=== PATIENT | male | born 1975 | race Caucasian/White ===

== ENCOUNTER 2024-03-29 14:56 | Day surgery (SDC) | payer OTHER, SELFPAY ==
[2024-03-27 10:47] VITALS: BMI 33.7
[2024-03-29 15:50] VITALS: BP 121/91; PULSE 61; RESP 16; TEMP 36.7; O2SAT 96
[2024-03-29 15:53] VITALS: BMI 33.7
[2024-03-29] MEDS: LACTATED RINGERS 1,000 ML 42 ML IV (16:18)
--- NOTE | 2024-03-29 16:27 | SUR.OPER ---
Prone on padded OR bed, head in foam head support, gel chest rolls, gel pad under knees, toes free of pressure, arms secured on padded arm boards at <90 degrees abduction. Safety belt at thigh. operative leg draped free
--- NOTE | 2024-03-29 17:13 | SUR.PREOP ---
Block start time [1658] . Monitoring initiated and maintained throughout procedure. Oxygen and medications given per anesthesiologist instructions. Patient remained stable throughout procedure, no adverse reactions noted. Block end time [1703].
--- NOTE | 2024-03-29 17:36 | PM.PREOP ---
Pre-operative Note Interval Note History & Physical reviewed/Exam performed by Physician: Yes Changes to H&P: No
[2024-03-29] MEDS: CEFAZOLIN VIAL 3 GM in SODIUM CHLORIDE 0.9% 100 ML IV (18:18)
[2024-03-29] MEDS: BUPIVACAINE 0.25% W/ EPI 30 ML VIAL 60 ML INJ (18:42)
[2024-03-29] MEDS: BUPIVACAINE 0.25% (PF) 30 ML, EPINEPHrine 0.15 MG INJ (19:11)
--- NOTE | 2024-03-29 19:22 | P.OP_ITS ---
Operative Date/Time/Diagnoses Date of procedure: 03/29/24 Time of procedure: 18:20 Pre-op diagnosis: Rupture right Achilles tendon Post-op diagnosis: same Procedure & Clinicians Procedure: Achilles tendon repair right CPT code 56527 Same procedure as scheduled: Yes Indications: Patient is a 48-year-old male that sustained an Achilles rupture of his right Achilles approximately 6 weeks ago while he was pushing heavy items and felt an acute pop in the back of his leg. Sought urgent care and his PCP was told he has a sprain eventually underwent an MRI that was read as high-grade partial- thickness with a few strands however a 2.5 cm gap. The patient had persistent swelling and weakness and pain and was ultimately had a delayed diagnosis of a Achilles tendon rupture. No active plantar flexion with Gomez test. Surgical and nonsurgical options were discussed. We discussed he had an established gap and in order to obtain length and power an Achilles tendon repair would be needed. We discussed a chronic option would be a flexor hallucis longus transfer. At 6 weeks in a young patient primary repair was felt to be appropriate to avoid long-term dysfunction weakness and atrophy. The risks and benefits of the procedure have been discussed with the patient and given the opportunity to ask questions. The risks of surgery include but are not limited to infection, rerupture, persistence of pain, damage to nerves and blood vessels, need for additional procedures DVT, PE, cardiopulmonary complications and . The patient expressed a thorough understanding of the risks and benefits of surgery and has elected to proceed. Consent was signed . Surgeon: Ana Cheek Click Yes if Unassisted: Yes Anesthesia Type: General, Peripheral nerve block and Local Operative Notes Findings: No active plantar flexion with Gomez test. Achilles tendon rupture with significant stretching and mop ends. Moderate adhesions and scar tissue from subacute rupture Closure Type: primary Specimen(s): none sent Prosthetic devices, grafts, tissues, transplants, or devices: Suture tape Estimated Blood Loss (mL): 5 Blood products transfused: none Tourniquet time (min): 22 Procedure in detail: Patient was seen in the preoperative area the site of surgery was marked and informed consent confirmed. The right lower extremity was marked. The patient underwent a preoperative nerve block with the anesthesia team for postoperative pain control. The patient was then brought to the operating room and general anesthetic was administered. The patient was then positioned prone position on the table bony prominences were well padded. A thigh tourniquet was applied to the operative extremity and SCD to the nonoperative leg. The right lower extremity was prepped and draped in standard sterile fashion a formal time-out procedure was performed confirming the patient's side and site of surgery administration of appropriate preoperative antibiotic. All were in agreement. Attention was turned to the right leg was brought up into knee flexion and again calf squeeze did not demonstrate active plantar flexion this was the Gomez test consistent with Achilles tendon rupture. Based on the MRI and palpation examination this was a high Achilles rupture and incisions marked out starting between 8 and 12 cm above the insertion of the Achilles on the calcaneus. This was taken just medial to the midline. The Esmarch was used for exsanguination the tourniquet was raised to 250 mm of mercury. Incision was taken just medial to midline to stay away from the sural nerve. This was taken carefully down through the skin subcutaneous fascia. Neurovascular bundle was retracted laterally. Paratenon was opened. The tendon and functional rupture with a scarred stretched out tendon and adhesive scar was demonstrated. Incision was slightly extended proximally and distally to expose good tendon. Suture tape was placed in a Krackow fashion proximally and distally then the mid section of the scarred ball part of the rupture was then cut out creating proximally cm and a half to 2 cm of shortening next the tendon ends were brought together with the foot in about 20? of plantar flexion and tied. This was oversewn with the additional 0 Vicryl suture. Once this was complete the Gomez test was again performed and this time there was intact plantar flexion with calf squeeze demonstrating reconstitution of the Achilles tendon after the repair. Additionally a fasciotomy was made of the deep fascia to help with blood supply to the repair. The tourniquet was released hemostasis was achieved. The wound was irrigated the paratenon was closed with 2-0 Vicryl subcutaneous with 2-0 Vicryl 4-0 Monocryl and the skin with 3-0 nylon suture. 20 cc of 0.25% Marcaine with epinephrine were injected for local anesthesia. The limb was dressed with Xeroform gauze Webril and a well-padded posterior splint in 20? of plantar flexion. Patient was awoken from anesthesia and taken to recovery room in good condition there were no immediate complications from this procedure. All counts were correct. Complications: none Post-operative Condition: stable Disposition: PACU Plan for aftercare: Patient will undergo the standard Achilles repair protocol we will spend the 1st 2-3 weeks in the plantar flexion splint then at the 1st postoperative appointment as long as the incisions well healed we will go into a boot with heel lifts and start progressive weight-bearing in the boot with the heel lifts and we will start early plantar flexion range of motion. No dorsiflexion above 0. Once full weight-bearing in the boot at about 6 weeks postop the heel lifts we will start along the weaning protocol. The patient will utilize aspirin for DVT prophylaxis.
[2024-03-29 19:23] VITALS: BP 149/89; PULSE 67; RESP 18; TEMP 36.8; O2SAT 97
[2024-03-29 19:28] VITALS: BP 141/86; PULSE 57; RESP 14; O2SAT 97
[2024-03-29 19:34] VITALS: BP 129/92; PULSE 57; RESP 14; O2SAT 97
[2024-03-29 19:39] VITALS: BP 141/89; PULSE 53; RESP 16; TEMP 36.8; O2SAT 97
== END 2024-03-29 19:54 | disposition home or self-care (01) ==
PROVIDERS: Referring Provider Orthopaedic Surgery Foot and Ankle Surgery; Visit Provider Orthopaedic Surgery Foot and Ankle Surgery
PROC: (CPT 27650; principal; 2024-03-29 16:15)
DX: S86.011A Strain of right Achilles tendon, initial encounter (principal); G89.18 Other acute postprocedural pain
CPT/HCPCS: 27650; 64450; J0171; J0330; J0690; J1100; J1170; J2405; J2704

== ENCOUNTER 2025-05-19 22:39 | Emergency (ER) | payer OTHER, SELFPAY ==
[2025-05-19 22:42] VITALS: BP 148/86; PULSE 98; RESP 16; TEMP 36.8; O2SAT 95; BMI 32.5
--- NOTE | 2025-05-19 22:46 | ED.GENADULT ---
HPI - General Adult General Chief complaint: Shortness of Breath/Dyspnea Stated complaint: cold since wednesday , fatigue, trouble breathingweak Time Seen by Provider: 05/19/25 22:45 History of Present Illness HPI narrative: Patient is a 49-year-old male with a past medical history of hypertension comes into the ED from home for evaluation of flu-like symptoms ongoing persistent since yesterday, he states that he has been feeling some sinus congestion swollen lymph nodes he states that tonight he was lying down states that he felt like he was unable to breathe, states that even currently he feels like he is only able to take shallow breaths. He does admit to a cough fevers chills muscle aches he denies any other symptoms at this time. Not on any blood thinners, he states that he actually recently travel from [place] and states that his son has come down with a cold. States that he feels like he was too congested he uses CPAP today. On time of evaluation patient is speaking full sentences protecting airway no voice changes no stridor no trismus not requiring any supplemental oxygen. Related Data Home Medications ?Medication ?Instructions ?Recorded ?Confirmed lisinopril 5 mg tablet 5 mg PO DAILY 03/27/24 05/19/25 Previous Rx's ?Medication ?Instructions ?Recorded ondansetron HCl 4 mg tablet 4 mg PO Q8H PRN nausea and 03/29/24 vomiting #5 tabs oxycodone 5 mg tablet 5 mg PO Q4H PRN pain #30 tabs 03/29/24 Allergies Allergy/AdvReac Type Severity Reaction Status Date / Time No Known Drug Allergies Allergy Verified 05/19/25 22:43 Review of Systems Review of Systems Narrative: General: Positive fever, chills, denies weight loss HEENT: Denies headache, eye drainage, eye irritation, head trauma, sore throat, voice change Cardiovascular: Denies any chest pain, palpitations, tachycardia Respiratory: Positive shortness of breath, cough, denies wheeze, stridor GI/: Denies any abdominal pain, nausea, vomiting, diarrhea, bright red blood per rectum, melanotic stools, urinary frequency, urinary retention, dysuria, hematuria MSK: Denies any joint pain, muscle pains, swelling Skin: Denies any rashes, lesions, discoloration Neuro: Denies any headache, lightheadedness, dizziness, fainting, weakness Psych: Denies SI/HI Patient History Medical History (Updated 05/20/25 @ 00:23 by Vladislav Charlton DO) HTN (hypertension) Social History household members: spouse and children Smoking Status: Never smoker alcohol intake: current alcohol intake frequency: a few times a month Exam Narrative Exam Narrative: General: Cooperative, well-developed, not in acute distress HEENT: Normocephalic, atraumatic, PERRLA, normal sclera, eyelids normal, positive nasal congestion Neck: Active full range of motion, atraumatic Chest: Normal to inspection, negative crepitus, no overlying erythema ecchymosis Respiratory: Normal respiratory effort, not in acute respiratory distress, clear to auscultation bilaterally negative cough, wheeze, tachypnea, rhonchi, rales Cardiology: Regular rate rhythm negative gallop, murmur, rubs GI/: No tenderness to palpation, soft, non rigid, normal to inspection, exam deferred MSK: Full active range of motion in all 4 extremities, atraumatic, no tenderness to palpation of any bony prominences Skin: No rashes or lesions noted Neuro: Alert awake oriented x3, moves all 4 extremities spontaneously, cranial nerves intact, able to answer all questions appropriately follows commands appropriately Psych: Cooperative, negative suicidal or homicidal ideations Initial Vital Signs Initial Vital Signs: Vital Signs Temperature 98.2 F 05/19/25 22:42 Pulse Rate 98 H 05/19/25 22:42 Respiratory Rate 16 05/19/25 22:42 Blood Pressure 148/86 H 05/19/25 22:42 Pulse Oximetry 95 05/19/25 22:42 Oxygen Delivery Method Room Air 05/19/25 22:42 Course Orders Ordered: ED Orders 05/19/25 23:05 XR chest 1V Stat EKG-12 Lead Stat 05/19/25 23:17 Complete Blood Count AUTO DIFF Stat Comprehensive Metabolic Panel Stat Lipase Stat MAG [Magnesium] Stat NT-proBNP (BNP-Adult 18+) Stat Troponin & CK Cardiac Panel Stat 05/19/25 23:19 Respiratory Panel (Film Array) Stat Discontinued Medications Albuterol (Albuterol Hfa Mdi 60 Puff/8 Gm Inhaler (Covid Only)) 2 puff INH NOW ONE Stop: 05/19/25 23:06 Last Admin: 05/19/25 23:22 Dose: Not Given Documented By: Albuterol (Albuterol Hfa Prepack) 1 box MISC DIRECTED ONE Stop: 05/19/25 23:12 Last Admin: 05/19/25 23:23 Dose: 1 box Documented By: Vital Signs Vital signs: Vital Signs - 8 hr 05/19/25 22:42 05/19/25 23:04 05/19/25 23:05 Temperature 98.2 F Pulse Rate 98 H 94 H 94 H Respiratory Rate 16 Blood Pressure 148/86 H Pulse Oximetry 95 99 96 Oxygen Delivery Method Room Air 05/19/25 23:05 05/19/25 23:30 05/19/25 23:31 Temperature Pulse Rate 87 86 Respiratory Rate 24 Blood Pressure 140/91 H Pulse Oximetry 94 94 Oxygen Delivery Method 05/19/25 23:31 Temperature Pulse Rate Respiratory Rate 22 Blood Pressure 136/93 H Pulse Oximetry Oxygen Delivery Method Medical Decision Making Lab Data 05/19/25 23:17 05/19/25 23:17 Labs: Lab Results 05/19/25 05/19/25 Range/Units 23:17 23:19 WBC 8.0 (4.5-11.0) X10^3/uL RBC 4.74 (4.5-5.9) X10^6/uL Hgb 15.2 (13.5-17.5) g/dL Hct 43.2 (41-53) % MCV 91.0 (80-100) fL MCH 32.0 (26-34) PG MCHC 35.2 (30-36) % RDW 13.2 (11.6-14.8) % Plt Count 233 (150-400) X10^3/uL Neut % (Auto) 83.0 H (50-75) % Lymph % (Auto) 8.3 L (25-40) % [place] % (Auto) 6.3 (3-14) % Eos % (Auto) 0.2 L (2-4) % Baso % (Auto) 2.2 H (0-2) % Neut # (Auto) 6600 (9391-3503) /uL Lymph # (Auto) 700 L (4296-0555) /uL [place] # (Auto) 500 (0-900) /uL Eos # (Auto) 0 (0-450) /uL Baso # (Auto) 200 H (0-100) /uL Sodium 135 L (137-145) mmol/L Potassium 3.8 (3.4-5.1) mmol/L Chloride 100 (98-107) mmol/L Carbon Dioxide 25 (22-32) mmol/L BUN 11 (9-20) mg/dL Creatinine 0.87 (0.66-1.25) mg/dL Estimated GFR > 60 (>60) mL/min BUN/Creatinine Ratio 12.6 (6-22) Glucose 115 H (70-99) mg/dL Calcium 8.6 (8.4-10.2) mg/dL Magnesium 1.8 (1.6-2.3) mg/dL Total Bilirubin 1.0 (0.2-1.3) mg/dL AST 26 (17-59) IU/L ALT 28 (<50) IU/L Alkaline Phosphatase 89 (38-126) U/L Total Creatine Kinase 53 L (55-170) U/L Troponin I < 0.012 (0.01-0.034) ng/mL NT-Pro-B Natriuret Pep 57 (<125) pg/mL Total Protein 7.6 (6.3-8.2) g/dL Albumin 4.4 (3.5-5.0) g/dL Globulin 3.2 (1.7-4.1) g/dL Albumin/Globulin Ratio 1.4 (1.0-2.8) Lipase 42 (23-300) U/L Chlamy pneumoniae PCR Not detected (Not Detect) Adenovirus (PCR) Not detected (Not Detect) B. pertussis DNA (PCR) Not detected (Not Detect) B.parapertussis DNA PCR Not detected (Not Detecte) Coronavirus OC43 (PCR) Not detected (Not Detect) Coronavirus HKU1 (PCR) Not detected (Not Detect) Coronavirus 229E (PCR) Not detected (Not Detect) SARS-CoV-2 (PCR) Detected H (Not Detecte) Coronavirus NL63 (PCR) Not detected (Not Detect) Human Metapneumovir PCR Not detected (Not Detect) Influenza Type A (PCR) Not detected (Not Detect) Influenza Type B (PCR) Not detected (Not Detect) M. pneumoniae (PCR) Not detected (Not Detect) Parainfluenza 1 (PCR) Not detected (Not Detect) Parainfluenza 2 (PCR) Not detected (Not Detect) Parainfluenza 3 (PCR) Not detected (Not Detect) Parainfluenza 4 (PCR) Not detected (Not Detect) RSV (PCR) Not detected (Not Detect) Entero/Rhino (PCR) Not detected (Not Detect) MDM Narrative Medical decision making narrative: 49-year-old male presenting with flu-like symptoms ongoing persistent for the past 2 days. Complaining of fevers chills shortness of breath cough, patient not requiring any supplemental oxygen. Patient lab work without any leukocytosis, troponin negative, BNP negative, chest x-ray without any acute cardiopulmonary abnormality, patient respiratory panel positive for COVID, he is not requiring any supplemental oxygen he has improved symptoms after symptomatic treatment with albuterol inhaler. He will be discharged home with albuterol for spastic coughing instructed him to take Motrin Tylenol for aches and pains, he was given strict return precautions verbalized understanding of this and agrees to being discharged home with outpatient follow up with the primary care. Discharge Plan Departure Patient Disposition: Home Clinical Impression: COVID Instructions: DI for COVID-19 (Suspected or Confirmed ) Activity Restrictions/Additional Instructions: Please follow up with the primary care doctor as needed Please read the discharge instructions sheet carefully and bring all papers to all doctor follow-up visits, as it may contain information that your doctor may want to see. Disease processes change and evolve, if your symptoms worsen or if you develop any new symptoms that are concerning to you please return for evaluation. Your evaluation today does not show any evidence of any life-threatening/serious illnesses requiring admission to the hospital or surgery. Please follow-up with your doctor for re-evaluation in approximately 1 day. Seek immediate medical attention for any worrisome symptoms. *If you do not have a primary care provider please contact the [facility] Resource line at [phone]. They will ask some questions about your medical history and help get you set up with a doctor in the community. Prescriptions: No Action lisinopril 5 mg Tablet 5 mg PO DAILY oxycodone 5 mg tablet 5 mg PO Q4H PRN (Reason: pain) Qty: 30 0RF Rx Instructions: postop exempt ondansetron HCl 4 mg tablet 4 mg PO Q8H PRN (Reason: nausea and vomiting) Qty: 5 1RF Referrals: [facility] [Primary Care Provider, Family Practice] Stand Alone Forms: Patient Portal/API
[2025-05-19 23:04] VITALS: PULSE 94; O2SAT 99
[2025-05-19 23:05] VITALS: BP 140/91; PULSE 94; RESP 24; O2SAT 96
--- NOTE | 2025-05-19 23:05 | DI.RAD.S_ITS ---
PROCEDURE: XR CHEST 1V INDICATIONS: dyspnea TECHNIQUE: One view of the chest was acquired. COMPARISON: None. FINDINGS: Surgical changes and devices: None. Lungs and pleura: Bilateral mid to lower lung linear opacities without dense consolidation. No effusion or. Mediastinum: Mediastinal contours appear normal. Heart size is normal. Bones and chest wall: No suspicious bony lesions. Overlying soft tissues appear unremarkable. IMPRESSION: Bilateral mid to lower lung opacities suggestive of atelectasis/hypoinflation. No acute consolidations to suggest pneumonia. Dictated by: Rosario Wong M.D. on 05/20/2025 at 0:04 Approved by: Rosario Wong M.D. on 05/20/2025 at 0:05
[2025-05-19 23:23] LABS: Add Manual Diff / Slide Review NO; Hematocrit 43.2 % (41-53); Hemoglobin 15.2 g/dL (13.5-17.5); Lymphocytes Absolute Auto 700 /uL (1100-4500); Mean Corpuscular HGB Conc 35.2 % (30-36); Mean Corpuscular Hemoglobin 32.0 PG (26-34); Mean Corpuscular Volume 91.0 fL (80-100); Platelet Count 233 X10^3/uL (150-400)
[2025-05-19] MEDS: ALBUTEROL HFA PREPACK 1 BOX MISC (23:23)
[2025-05-19 23:30] VITALS: PULSE 87; O2SAT 94
[2025-05-19 23:31] VITALS: BP 136/93; PULSE 86; RESP 22; O2SAT 94
[2025-05-19 23:45] LABS: Alanine Aminotransferase 28 IU/L (<50); Albumin 4.4 g/dL (3.5-5.0); Albumin Globulin Ratio 1.4 (1.0-2.8); Alkaline Phosphatase 89 U/L (38-126); Blood Urea Nitrogen 11 mg/dL (9-20); Calcium 8.6 mg/dL (8.4-10.2); Carbon Dioxide 25 mmol/L (22-32); Chloride 100 mmol/L (98-107); Creatine Kinase 53 U/L (55-170); Estimated Glomerular Filt Rate > 60 mL/min (>60); Globulin 3.2 g/dL (1.7-4.1); Glucose 115 mg/dL (70-99); HEMOLYSIS < 15 (0-50); Lipase 42 U/L (23-300); Potassium 3.8 mmol/L (3.4-5.1); Sodium 135 mmol/L (137-145); Total Protein 7.6 g/dL (6.3-8.2)
[2025-05-19 23:46] LABS: Magnesium 1.8 mg/dL (1.6-2.3)
--- NOTE | 2025-05-19 23:46 | EKG_ITS ---
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
[2025-05-19 23:55] LABS: NT-proBNP (BNP-Adult 18+) 57 pg/mL (<125)
[2025-05-19 23:57] LABS: Troponin I < 0.012 ng/mL (0.01-0.034)
[2025-05-20] VITALS: BP 141/94; PULSE 86; RESP 18; O2SAT 94
[2025-05-20 00:16] LABS: Coronavirus NL 63 Not Detected (Not Detect); SARS- CoV-2 Detected (Not Detecte)
== END 2025-05-20 00:32 | disposition home or self-care (01) ==
PROVIDERS: Emergency Provider Student in an Organized Health Care Education/Training Program
DX: U07.1 COVID-19 (principal); I10 Essential (primary) hypertension
CPT/HCPCS: 36415; 71045; 80053; 82550; 83690; 83735; 83880; 84484; 85025; 87633; 93005; 99283; 99284; A9270

== ENCOUNTER 2025-05-29 11:00 | Emergency (ER) | payer OTHER, SELFPAY ==
[2025-05-29 11:09] VITALS: BP 148/89; PULSE 81; RESP 15; TEMP 36.4; O2SAT 96; BMI 33.0
--- NOTE | 2025-05-29 11:15 | EKG_ITS ---
[address] [address] Test Date: 2025-05-29 Pat Name: Tai Ortega Department: Room: Gender: Male [employer] Officer: NATHANIEL : 1975 Requested By: Order Number: [id number] Reading MD: Mendez Herndon MD Measurements Intervals [place] Rate: 75 P: 42 DC: 178 QRS: 26 QRSD: 90 T: 33 QT: 358 QTc: 399 Interpretive Statements Normal sinus rhythm Electronically Signed On 05-29-2025 12:19:16 PDT by Mendez Herndon MD
--- NOTE | 2025-05-29 11:15 | DI.RAD.S_ITS ---
PROCEDURE: XR CHEST 2V INDICATIONS: green sputum with cough TECHNIQUE: 2 views of the chest were acquired. COMPARISON: None. FINDINGS: Surgical changes and devices: None. Lungs and pleura: Lungs are clear. No pleural effusions or pneumothorax. Mediastinum: Mediastinal contours are normal. Heart size is normal. Bones and chest wall: No suspicious bony abnormalities. Soft tissues appear unremarkable. IMPRESSION: No acute cardiopulmonary abnormality is seen. Dictated by: Deidre Torres MD, PhD on 05/29/2025 at 11:31 Approved by: Deidre Torres MD, PhD on 05/29/2025 at 11:31
--- NOTE | 2025-05-29 11:29 | ED_ITS ---
HPI - URI/Sore Throat <Ana Shook PA-C - Last Filed: 05/29/25 12:08> General Chief Complaint: Upper Respiratory Symptoms Stated Complaint: Still not feeling good from last ER visit Time Seen by Provider: 05/29/25 11:13 Mode of arrival: Ambulatory History of Present Illness HPI Narrative: Mr. Ortega is a pleasant 49-year-old male with a past medical history of hypertension, sleep apnea who presents to the emergency department for worsening productive cough x 10 days. Patient develop shortness of breath, cough and the upper respiratory symptoms about 2 weeks ago and was seen in the ER on 05/19/2025 and had lab work, imaging, EKG performed and ended up testing positive for COVID. He has been using an albuterol inhaler as needed however he is continued to feel fatigued and have persistent nasal drainage/sinus pressure over the last 10 days with worsening productive cough. Patient went back to work 2 days ago but becomes extremely fatigued and has coughing fits with exertion. At night when the patient lays flat he can feel the sinus pressure moving around. Symptoms are improved with taking [id number] cough medicine and Tylenol which he took prior to arrival. Patient states that coughing fits become extremely aggressive at night causing his back to crack and for him to have bilateral chest wall pain. No substernal chest pain at rest. No fevers but patient does have occasional sweating. Denies abdominal pain, lower extremity swelling, nausea, vomiting, diarrhea, dysuria, ear pain, sore throat, antibiotic allergies. Nonsmoker. Related Data Home Medications ?Medication ?Instructions ?Recorded ?Confirmed lisinopril 5 mg tablet 5 mg PO DAILY 03/27/2405/19 Previous Rx's ?Medication ?Instructions ?Recorded ondansetron HCl 4 mg tablet 4 mg PO Q8H PRN nausea and 03/29/24 vomiting #5 tabs oxycodone 5 mg tablet 5 mg PO Q4H PRN pain #30 tab s 03/29/24 amoxicillin 875 mg-potassium 1 tab PO BID 7 days #14 t abs 05/29/25 clavulanate 125 mg tablet benzonatate 100 mg capsule 200 mg (2 x 100 mg) PO BID- TID PRN 05/29/25 cough #30 caps Allergies Allergy/AdvReac Type Severity Reaction Status Date / Time No Known Drug Allergies Allergy Verified 05/29/25 11:09 Review of Systems <nAa Shook PA-C - Last Filed: 05/29/25 12:08> Review of Systems ROS Unobtainable: All systems reviewed & are unremarkable except as noted in HPI and below Patient History <Ana Shook PA-C - Last Filed: 05/29/25 12:08> Medical History HTN (hypertension) Social History household members: spouse and children Smoking Status: Unknown if ever smoked alcohol intake: current Smoking Status: Unknown if ever smoked alcohol intake frequency: a few times a month Alcohol type: beer, wine and hard liquor Exam <Ana Shook PA-C - Last Filed: 05/29/25 12:08> Narrative Exam Narrative: GENERAL: 49 year old patient appears stated age. Well-developed patient, in no acute distress. HEAD: Atraumatic. Normocephalic. EYES: Extraocular motions intact. No scleral icterus. No injection or drainage. ENT: mild erythema R TM, no drainage in canal. mild scarring left TM, canal clear. BL nares patent, BL maxillary sinus tenderness. Throat without erythema, tonsillar hypertrophy or exudate. Airway patent. NECK: Trachea midline. Cervical ROM intact. CARDIOVASCULAR: Regular rate and rhythm. RESPIRATORY: ?Nonlabored respirations. ?Speaking in clear, full sentences. ?Frequent dry cough during exam. Clear to auscultation. Breath sounds equal bilaterally. No wheezes, rales, or rhonchi. ? EXTREMITIES: No LE edema. NEURO: AOx3. ?Clear speech. ?Moves all 4 extremities appropriately. SKIN: No rash or erythema of visible areas. Warm, dry. Initial Vital Signs Initial Vital Signs: Vital Signs Temperature 97.5 F L 05/29/25 11:09 Pulse Rate 81 05/29/25 11:09 Respiratory Rate 15 05/29/25 11:09 Blood Pressure 148/89 H 05/29/25 11:09 Pulse Oximetry 96 05/29/25 11:09 Oxygen Delivery Method Room Air 05/29/25 11:09 <Mary Rey DO - Last Filed: 06/01/25 07:03> Initial Vital Signs Initial Vital Signs: Vital Signs Temperature 97.5 F L 05/29/25 11:09 Pulse Rate 81 05/29/25 11:09 Respiratory Rate 15 05/29/25 11:09 Blood Pressure 148/89 H 05/29/25 11:09 Pulse Oximetry 96 05/29/25 11:09 Oxygen Delivery Method Room Air 05/29/25 11:09 Course <Ana Shook PA-C - Last Filed: 05/29/25 12:08> Orders Ordered: Discontinued Medications Ketorolac Tromethamine (Ketorolac 30 Mg/Ml Vial) 30 mg IM NOW ONE Stop: 05/29/25 11:42 Last Admin: 05/29/25 11:51 Dose: 30 mg Documented By: CLAY Vital Signs Vital signs: Vital Signs - 8 hr 05/29/25 11:09 Temperature 97.5 F L Pulse Rate 81 Respiratory Rate 15 Blood Pressure 148/89 H Pulse Oximetry 96 Oxygen Delivery Method Room Air <Mary Rey DO - Last Filed: 06/01/25 07:03> Orders Ordered: Discontinued Medications Ketorolac Tromethamine (Ketorolac 30 Mg/Ml Vial) 30 mg IM NOW ONE Stop: 05/29/25 11:42 Last Admin: 05/29/25 11:51 Dose: 30 mg Documented By: CALY Vital Signs Vital signs: Vital Signs - 8 hr 05/29/25 11:09 Temperature 97.5 F L Pulse Rate 81 Respiratory Rate 15 Blood Pressure 148/89 H Pulse Oximetry 96 Oxygen Delivery Method Room Air MDM - URI/Sore Throat <Ana Shook PA-C - Last Filed: 05/29/25 12:08> Medical Records Attestation: I reviewed the patient's medical records. Imaging Data Chest x-ray: Radiologist's Impression: PROCEDURE: XR CHEST 2V INDICATIONS: green sputum with cough TECHNIQUE: 2 views of the chest were acquired. COMPARISON: None. FINDINGS: Surgical changes and devices: None. Lungs and pleura: Lungs are clear. No pleural effusions or pneumothorax. Mediastinum: Mediastinal contours are normal. Heart size is normal. Bones and chest wall: No suspicious bony abnormalities. Soft tissues appear unremarkable. IMPRESSION: No acute cardiopulmonary abnormality is seen. Dictated by: Deidre Torres MD, PhD on 05/29/2025 at 11:31 Approved by: Deidre Torres MD, PhD on 05/29/2025 at 11:31 [facility] Narrative Medical decision making narrative: 49-year-old male with a past medical history of hypertension, sleep apnea who presents to the emergency department for worsening productive cough x 10 days. Differential diagnosis includes but is not limited to COVID, viral syndrome, post viral cough, pneumonia, sinusitis, reactive airway disease, etc. On exam the patient is in no acute distress, nontoxic-appearing, all vital signs within normal limits, not hypoxic or tachycardic, not requiring oxygen supplementation, speaking in clear full sentences. Diagnosed with COVID 10 days ago, has had continued cough and sinus pressure and drainage, cough actually became more productive last night. Lungs are clear to auscultation bilaterally there was no lower extremity edema. There is occasional bilateral chest wall pain with coughing but no chest pain at rest, EKG obtained in triage reviewed by myself and attending ER physician, reveals normal sinus rhythm with a rate of 75 beats per minute, QTC 399, no ST segment elevations. Chest x-ray also obtained in triage. Patient took Tylenol prior to arrival which has started to help, we will also treat myalgias with Toradol. Concern for secondary bacterial sinusitis given nasal drainage and sinus pressure for 2 weeks at this point, however we will also check chest x-ray for possible pneumonia to help determine best antibiotic regimen. Chest x-ray reveals no acute cardiopulmonary abnormality. We will treat presumed bacterial sinusitis with Augmentin b.i.d. x7 days, we will also prescribe benzonatate to use if needed for cough. Counseled on Tylenol and ibuprofen use, rest, hydration. Discussed follow up with PCP and strict ED return precautions. Patient verbalized understanding of all information agreeable with the plan. He is stable for discharge home. Discharge Plan Departure Patient Disposition: Home Clinical Impression: COVID Sinusitis Qualifiers: Sinusitis location: unspecified location Chronicity: acute Recurrence: non- recurrent Qualified Code(s): J01.90 - Acute sinusitis, unspecified Cough Qualifiers: Cough type: acute Qualified Code(s): R05.1 - Acute cough Instructions: DI for Sinusitis Activity Restrictions/Additional Instructions: Dear Mr. Ortega, Thank you for coming to the emergency department. Today you were evaluated for persistent upper respiratory symptoms after being diagnosed with COVID 10 days ago. Luckily your chest x-ray today was normal and did not show any abnorm alities or pneumonia in the lungs. However given your symptoms as we discussed I am treating you with an antibiotic for suspected bacterial sinusitis. I have also prescribed you a cough medicine. Please rest, increase hydration with water, use ibuprofen and Tylenol together or alternating to help with the pain, and follow up with your primary care doctor. Please take Ibuprofen (Motrin/Advil) or Acetaminophen (Tylenol) for pain. These are available over the counter. You may take Ibuprofen 600 mg every 8 hours with food for pain. You may also take Acetaminophen 650 mg every 4-6 hours for pain. Do not exceed 3000 mg of Tylenol a day as this can cause liver damage. Do not drink alcohol with either of these medications. Please return to the emergency department if you develop difficulty breathing, chest pain, persistent or worsening symptoms, fevers or any other concerns. Please follow up with your primary care doctor within the next 2-3 days for ER follow-up. (If you do not have a PCP you can call [phone]. ?to schedule an appointment with an [facility] Primary Care Provider) IF YOU DEVELOP ANY NEW OR WORSENING SYMPTOMS, RETURN TO THE ER! Please read the attached instructions, they highlight more specific treatments and interventions for you at home. Thank you for letting me participate in your care, Ana Shook PA-C Prescriptions: New amoxicillin-pot clavulanate 875-125 mg tablet 1 tab PO BID 7 Days Qty: 14 0RF benzonatate 100 mg capsule 200 mg PO BID-TID PRN (Reason: cough) Qty: 30 0RF No Action lisinopril 5 mg Tablet 5 mg PO DAILY oxycodone 5 mg tablet 5 mg PO Q4H PRN (Reason: pain) Qty: 30 0RF Rx Instructions: postop exempt ondansetron HCl 4 mg tablet 4 mg PO Q8H PRN (Reason: nausea and vomiting) Qty: 5 1RF Referrals: [facility] [Primary Care Provider, Family Practice] Stand Alone Forms: Patient Portal/API, Work Release Note ED Sign-out <Mary Rey DO - Last Filed: 06/01/25 07:03> Cosign ED Attending Cosignature Attestation: I was available for consultation.
[2025-05-29] MEDS: KETOROLAC 30 MG/ML VIAL IM (11:51)
[2025-05-29 12:08] VITALS: BP 132/91; PULSE 71; RESP 19; O2SAT 96
== END 2025-05-29 12:10 | disposition home or self-care (01) ==
PROVIDERS: Emergency Provider Physician Assistant
DX: U07.1 COVID-19 (principal); J01.90 Acute sinusitis, unspecified; R05.1 Acute cough; R06.02 Shortness of breath
CPT/HCPCS: 71046; 93005; 93010; 96372; 99283; 99284; J1885